=== PATIENT | male | born 1955 | race American Indian/Alaskan Native ===

== ENCOUNTER 2017-04-09 23:40 | Inpatient (IN) | payer BC ==
[2017-04-09 23:50] VITALS: BMI 26.8
--- NOTE | 2017-04-09 23:52 | C.PDOC ---
History Of Present Illness Pt complaining of chest discomfort, while at rest. 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 Pt 's also states that pt has some chest pain about 2 days ago, but did not seek medical attention. Dull aching chest discomfort. /10. Speaking in complete sentences. Time Seen by Provider: 04/09/17 23:52 Chief Complaint (Nursing): Chest Pain History Per: Patient, Family History/Exam Limitations: no limitations Onset/Duration Of Symptoms: Hrs Current Symptoms Are (Timing): Still Present Context: Other Severity: Moderate Pain Scale Rating Of: 4 Quality: Dull, Burning, Aching Associated Symptoms: denies: Nausea, Dyspnea Exacerbating Factors: None Alleviating Factors: None Recent travel outside of the [place]: No Additional History Per: Family Past Medical History Reviewed: Historical Data, Nursing Documentation, Vital Signs Vital Signs: Last Vital Signs Temp 98.6 F 04/10/17 00:23 Pulse 87 04/10/17 01:22 Resp 20 04/10/17 01:22 BP 158/99 H 04/10/17 01:22 Pulse Ox 99 04/10/17 01:22 - Medical History PMH: CAD, Diabetes, HTN Denies: Arthritis, CHF, COPD, HIV, Hypercholesterolemia, Hypothyroidism, Chronic Kidney Disease, Rheumatoid Arthritis Surgical History: Pacemaker Family History: States: No Known Family Hx - Social History Hx Tobacco Use: No Hx Alcohol Use: No Hx Substance Use: No - Immunization History Hx Tetanus Toxoid Vaccination: No Hx Influenza Vaccination: No Hx Pneumococcal Vaccination: No Review Of Systems Constitutional: Negative for: Fever, Chills Eyes: Negative for: Redness ENT: Negative for: Throat Pain Cardiovascular: Positive for: Chest Pain. Negative for: Palpitations Respiratory: Negative for: Shortness of Breath Gastrointestinal: Negative for: Nausea, Vomiting, Abdominal Pain Genitourinary: Negative for: Dysuria Musculoskeletal: Negative for: Back Pain Skin: Negative for: Rash, Lesions, Jaundice Neurological: Negative for: Weakness Psych: Negative for: Anxiety Physical Exam - Physical Exam Appears: Non-toxic Skin: Warm, Dry Head: Normacephalic Eye(s): bilateral: Normal Inspection Oral Mucosa: Moist Neck: Supple Chest: Symmetrical, Other (pacer left cw) Cardiovascular: Rhythm Regular Respiratory: No Rales, No Rhonchi, No Wheezing Gastrointestinal/Abdominal: Soft, No Tenderness, No Distention, No Rebound Back: No CVA Tenderness Extremity: Normal ROM Extremity: Bilateral: Atraumatic, Normal Color And Temperature Pulses: Left Dorsalis Pedis: Normal, Right Dorsalis Pedis: Normal Neurological/Psych: Oriented x3, Normal Speech, Normal Cognition Gait: Steady ED Course And Treatment - Laboratory Results Result Diagrams: 04/10/17 00:05 04/10/17 00:05 ECG: Interpreted By Me, Viewed By Me ECG Rhythm: Sinus Rhythm (96), Nonspecific Changes O2 Sat by Pulse Oximetry: 95 Pulse Ox Interpretation: Normal - Radiology CXR: Interpreted by Me, Viewed By Me Progress Note: cardiac work up, asa, Disposition Discussed With Dr.: Anne Carter Comment: accepted the pt on his service and took over the care at 1:33 AM Doctor Will See Patient In The: Hospital Counseled Patient/Family Regarding: Studies Performed, Diagnosis - Disposition Disposition: HOSPITALIZED Disposition Time: 23:52 Condition: FAIR - POA Present On Arrival: Poor Glycemic Control - Clinical Impression Clinical Impression: Chest pain, CHF (congestive heart failure), Hyperglycemia Decision To Admit - Pt Status Changed To: Hospital Disposition Of: Inpatient - Admit Certification Admit to Inpatient:: After my assessment, the patient will require hospitalization for at least two midnights. This is because of the severity of symptoms shown, intensity of services needed, and/or the medical risk in this patient being treated as an outpatient. - InPatient: Physician Admission Certification: I certify that this patient requires 2 or more midnights of care for the following reason:: After my assessment, the patient will require hospitalization for at least two midnights. This is because of the severity of symptoms shown, intensity of services needed, and/or the medical risk in this patient being treated as an outpatient. - . Bed Request Type: Telemetry Admitting Physician: Anne Carter Patient Diagnosis: Chest pain, CHF (congestive heart failure), Hyperglycemia
[2017-04-09] MEDS ORDERED: Nitroglycerin 2% Ointment Foilpak UD TOP STA (23:57)
[2017-04-09] MEDS ORDERED: Aspirin 325 mg EC Tablets PO STA (23:57)
[2017-04-10] MEDS ORDERED: Nitroglycerin 2% Ointment Foilpak UD TOP ONE (00:06)
[2017-04-10] MEDS ORDERED: Morphine 4 MG/ML VIAL ONE (00:06)
[2017-04-10 00:12] LABS: BASO # 0.1 K/uL (0.0-0.2); BASO % 1.7 % (0.0-2.0); EOS # 0.5 K/uL (0.0-0.7); EOS % 9.4 % (0.0-4.0); HEMOGLOBIN 13.6 g/dL (12.0-18.0); LYMPH % 34.1 % (20.0-40.0); MEAN CELL VOLUME 80.5 fL (80.0-94.0); MEAN CORPUSCULAR HEMOGLOBIN 25.2 pg (27.0-31.0); MEAN CORPUSCULAR HGB CONC 31.3 g/dL (33.0-37.0); MEAN PLATELET VOLUME 9.2 fL (7.2-11.7); MONO # 0.7 K/uL (0.0-0.8); MONO % 11.3 % (0.0-10.0); NEUT # 2.5 K/uL (1.8-7.0); NEUT % 43.5 % (50.0-75.0); NRBC % 0.1 % (0.0-2.0); RBC 5.39 Mil/uL (4.40-5.90); RED CELL DISTRIBUTION WIDTH 14.7 % (11.5-14.5); WHITE BLOOD COUNT 5.8 K/uL (4.8-10.8)
[2017-04-10 00:38] LABS: INR 1.1; PROTHROMBIN TIME 12.5 SECONDS (9.7-12.2)
[2017-04-10 00:45] LABS: ALBUMIN 3.5 g/dL (3.5-5.0)
[2017-04-10 00:47] LABS: GFR AFRICAN-AMERICAN 30; GFR NON-AFRICAN AMERICAN 25
[2017-04-10 00:48] LABS: ALB/GLOB RATIO 1.1 (1.0-2.1); ALT/SGPT 17 U/L (21-72); AST/SGOT 35 U/L (17-59); BLOOD UREA NITROGEN 26 mg/dL (9-20); CALCIUM 7.8 mg/dl (8.6-10.4)
[2017-04-10 01:01] LABS: B-TYPE NATRIURETIC PEPTIDE 1190 pg/mL (0-900)
[2017-04-10 01:14] LABS: SQUAMOUS EPITHIAL < 1 /hpf (0-5); URINE BILIRUBIN NEGATIVE (NEGATIVE); URINE CLARITY Clear (Clear); URINE COLOR Straw (YELLOW); URINE GLUCOSE (UA) 3+ mg/dL (Normal); URINE LEUKOCYTE ESTERASE NEG Leu/uL (Negative); URINE NITRATE NEGATIVE (NEGATIVE); URINE PROTEIN 2+ mg/dL (NEGATIVE); URINE UROBILINOGEN NORMAL mg/dL (0.2-1.0)
[2017-04-10 01:26] LABS: URINE BLOOD NEGATIVE (NEGATIVE)
[2017-04-10] MEDS ORDERED: (Novolin 70/30) NPH/Regular 70/30 Units/ml 10 ml vial SC STA (02:29)
[2017-04-10] MEDS ORDERED: (Novolin R) Insulin Human Regular 100 units/ml vial SC ONE (02:37)
[2017-04-10] MEDS ORDERED: [UNRECOGNIZED DRUG - OTHER] SC SCH (07:30)
[2017-04-10 08:10] LABS: CK-MB 1.8 ng/mL (0.0-3.38)
--- NOTE | 2017-04-10 08:40 | RAD ---
PROCEDURE: CHEST RADIOGRAPH, 1 VIEW HISTORY: Chest pain COMPARISON: 04/10/2017 FINDINGS: LUNGS: There is mild pulmonary venous congestion. There is bibasilar atelectasis. There are low lung volumes. PLEURA: No pneumothorax or pleural fluid seen. CARDIOVASCULAR: The heart is normal in size. There is prominent central vasculature. There is a left-sided dual lead transvenous permanent pacing device. OSSEOUS STRUCTURES: No significant abnormalities. VISUALIZED UPPER ABDOMEN: Normal. OTHER FINDINGS: None. IMPRESSION: Mild pulmonary venous congestion and bibasilar atelectasis.
[2017-04-10] MEDS: (Novolin R) Insulin Human Regular 100 units/ml vial SC SCH ×4 (09:16→22:05)
[2017-04-10] MEDS: Multivitamin With Minerals Tab PO SCH (09:18)
[2017-04-10] MEDS ORDERED: TRADJENTA 5 MG PO SCH (10:00)
--- NOTE | 2017-04-10 12:01 | CP.PCM.CON ---
History of Present Illness - History of Present Illness History of Present Illness: CC: CP / SOB HPI : Mr. Tran is a 61-year-old male from [facility] with past medical history significant for hypertension, diabetes mellitus ,hyperlipidemia ,congestive heart failure known ejection fraction of 30% who has been followed by a school childcare attendant out of [facility] Dr. Twan Das. According to the patient he had undergone ischemic evaluation by Dr. Degroot with a Persantine Myoview stress test about 2 weeks ago which showed nonspecific findings. He had an episode of chest pain last week which lasted for an hour and then subsequently resolved. Yesterday he had a recurrent episode of chest pain described as substernal pressure-like sensation radiating to the neck area for which he called 911 as was brought to the ED. According to patient's he had a cardiopulmonary arrest about 5 years ago. While he was in [place] and was intubated for 5 days. Patient does not recall that have information whether he had undergone any invasive evaluation for workup of his cardiomyopathy. According to the at baseline he is retired somewhat active can walk a few blocks. This is a second episode of his chest pain in the last 5 years. Patient has been compliant with his medications. Takes Coreg sustained release 40 mg daily candesartan fenofibric acid Lipitor and insulin. At baseline has NYHA functional class 1/2 dyspnea. 2 pillow orthopnea. EKG on initial presentation showed normal sinus rhythm left axis deviation with nonspecific lateral T-wave changes. He had undergone ICD placement and 2 years ago for cardiomyopathy. I had called and spoken with Dr. Travis Tilley for etiology of his presentation and his classic symptoms of indicted chest pain with severe exacerbation and CHF exacerbation. Dr. Ferguson agreed that he would need further invasive evaluation with possible cardiac catheterization for workup of his presentation. Review of Systems - Review of Systems All systems: reviewed and no additional remarkable complaints except - Constitutional Constitutional: As Per HPI - EENT Eyes: As Per HPI Nose/Mouth/Throat: As Per HPI - Cardiovascular Cardiovascular: Chest Pain, Chest Pain at Rest, Dyspnea, Dyspnea on Exertion - Respiratory Respiratory: As Per HPI - Gastrointestinal Gastrointestinal: As Per HPI - Musculoskeletal Musculoskeletal: As Per HPI - Integumentary Integumentary: As Per HPI - Neurological Neurological: As Per HPI - Endocrine Endocrine: As Per HPI Past Patient History - Infectious Disease Hx of Infectious Diseases: None - Past Medical History & Family History Past Medical History?: Yes - Past Social History Smoking Status: smoked x 25 years , quit smoking about 5 years ago Alcohol: None Drugs: Denies Home Situation {Lives}: With Family - CARDIAC Hx Cardiac Disorders: Yes Hx Congestive Heart Failure: Yes (Known ChF with EF of 30%) Hx Heart Attack: Yes (cardiac arrest 5 years ago ) Hx Hypercholesterolemia: Yes Hx Hypertension: Yes Hx Internal Defibrillator: Yes Hx Pacemaker: No - PULMONARY Hx Chronic Obstructive Pulmonary Disease (COPD): No - NEUROLOGICAL HX Cerebrovascular Accident: No - HEENT Hx HEENT Problems: No - RENAL Hx Chronic Kidney Disease: No - ENDOCRINE/METABOLIC Hx Hypothyroidism: No - HEMATOLOGICAL/ONCOLOGICAL Hx Human Immunodeficiency Virus (HIV): No - INTEGUMENTARY Hx Dermatological Problems: No - MUSCULOSKELETAL/RHEUMATOLOGICAL Hx Falls: No - GASTROINTESTINAL Hx Gastrointestinal Disorders: No - GENITOURINARY/GYNECOLOGICAL Hx Genitourinary Disorders: No - PSYCHIATRIC Hx Substance Use: No - SURGICAL HISTORY Other/Comment: pacemaker lt. chest wall. 2009 - ANESTHESIA Hx Anesthesia: Yes Hx Anesthesia Reactions: No Hx Malignant Hyperthermia: No Meds Allergies/Adverse Reactions: Allergies Allergy/AdvReac Type Severity Reaction Status Date / Time No Known Allergies Allergy Verified 04/09/17 23:50 - Medications Medications: Current Medications Acetaminophen (Tylenol 325mg Tab) 650 mg PO Q6 PRN PRN Reason: Headache Last Admin: 04/10/17 03:59 Dose: 650 mg Aspirin (Ecotrin) 81 mg PO DAILY [facility] Stop: 04/12/17 10:01 Last Admin: 04/10/17 09:17 Dose: 81 mg Carvedilol (Coreg) 12.5 mg PO BID [facility] Last Admin: 04/10/17 09:18 Dose: 12.5 mg Clopidogrel Bisulfate (Plavix) 75 mg PO DAILY [facility] Stop: 04/12/17 10:01 Last Admin: 04/10/17 09:17 Dose: 75 mg Fenofibrate (Tricor) 145 mg PO DAILY [facility] Last Admin: 04/10/17 10:50 Dose: 145 mg Heparin Sodium (Porcine) (Heparin) 5,000 units SC Q12 [facility] Last Admin: 04/10/17 10:51 Dose: 5,000 units Hydrochlorothiazide (Microzide) 12.5 mg PO DAILY [facility] Last Admin: 04/10/17 09:18 Dose: 12.5 mg Insulin Human Regular (Novolin R) 0 unit SC ACHS [facility] PRN Reason: Protocol Last Admin: 04/10/17 09:16 Dose: 3 unit Losartan Potassium (Cozaar) 100 mg PO DAILY [facility] Last Admin: 04/10/17 09:18 Dose: 100 mg Multivitamins/Minerals (Therapeutic-M Tab) 1 tab PO DAILY [facility] Last Admin: 04/10/17 09:18 Dose: 1 tab Rosuvastatin Calcium (Crestor) [address] [facility] Sitagliptin Phosphate (Januvia) 25 mg PO DAILY [facility] Last Admin: 04/10/17 10:52 Dose: Not Given Physical Exam - Constitutional Appears: Well - Head Exam Head Exam: ATRAUMATIC, NORMAL INSPECTION, NORMOCEPHALIC - Eye Exam Eye Exam: EOMI, Normal appearance, PERRL Pupil Exam: NORMAL ACCOMODATION, PERRL - ENT Exam ENT Exam: Mucous Membranes Moist, Normal Exam - Neck Exam Neck exam: Positive for: Normal Inspection - Respiratory Exam Respiratory Exam: Clear to Auscultation Bilateral, NORMAL BREATHING PATTERN - Cardiovascular Exam Cardiovascular Exam: REGULAR RHYTHM, RRR, +S1, +S2, Systolic Murmur - GI/Abdominal Exam GI & Abdominal Exam: Normal Bowel Sounds, Soft. absent: Tenderness - Rectal Exam Rectal Exam: Deferred - Extremities Exam Extremities exam: Positive for: normal inspection - Neurological Exam Neurological exam: Alert, CN II-XII Intact, Normal Gait, Oriented x3, Reflexes Normal - Psychiatric Exam Psychiatric exam: Normal Affect, Normal Mood - Skin Skin Exam: Dry, Intact, Normal Color, Warm Results - Vital Signs Recent Vital Signs: Last Vital Signs Temp 98.1 F 04/10/17 08:00 Pulse 82 04/10/17 09:16 Resp 20 04/10/17 08:00 BP 151/87 H 04/10/17 09:18 Pulse Ox 99 04/10/17 08:00 - Labs Result Diagrams: 04/10/17 00:05 04/10/17 00:05 Labs: Laboratory Results - last 24 hr 04/10/17 04/10/17 04/10/17 02:22 06:15 07:39 POC Glucose (mg/dL) 322 H 202 H Total Creatine Kinase 155 CK-MB (Mass) 1.80 Troponin I, Quant 0.0350 - EKG Data EKG Interpreted by: Myself EKG shows normal: Sinus rhythm, [place], ST-T waves - EKG Data EKG comments: lateral wall T-wave changes Assessment & Plan (1) Chest pain Assessment and Plan: acute onset severe chest pains at rest EKG - nonspecific TnI x 2 negative Typical anginal symptoms in patient with multiple risk factors ( htn, Dm, dyslipidemia) repeat cardiac enzymes check echocardiogram discussed his recent stress findings with his school childcare attendant in [facility] who agrees for further invasive w/u at keep pt on asa, bb, statins therapeutic lovenox for now Status: Acute (2) CHF (congestive heart failure) Assessment and Plan: acute on chronic severe CHF exacerbation systolic EF 30% etiology ? IHD continue with BB and ARB Status: Acute (3) Renal failure Assessment and Plan: Known CKD - III , baseline Cr is 2.1 contiue to monitor clinically Status: Acute (4) Dyslipidemia Assessment and Plan: check FLP cont with fenofibric acid and statins Status: Acute (5) HTN (hypertension) Assessment and Plan: BP stable cont with coreg and candesartan home meds Status: Acute
--- NOTE | 2017-04-10 12:12 | CARD ---
APPROVED REPORT EKG Measurement Heart [id number] [id number] <Conclusion> Normal sinus rhythm Left axis deviation Abnormal ECG
[2017-04-10 13:49] LABS: BASO # 0.1 K/uL (0.0-0.2); BASO % 1.2 % (0.0-2.0); EOS # 0.4 K/uL (0.0-0.7); EOS % 5.1 % (0.0-4.0); HEMOGLOBIN 13.2 g/dL (12.0-18.0); LYMPH # 1.8 K/uL (1.0-4.3); LYMPH % 21.9 % (20.0-40.0); MEAN CELL VOLUME 80.4 fL (80.0-94.0); MEAN CORPUSCULAR HEMOGLOBIN 25.9 pg (27.0-31.0); MEAN CORPUSCULAR HGB CONC 32.2 g/dL (33.0-37.0); MEAN PLATELET VOLUME 9.1 fL (7.2-11.7); MONO % 11.5 % (0.0-10.0); NEUT % 60.3 % (50.0-75.0); RBC 5.09 Mil/uL (4.40-5.90); RED CELL DISTRIBUTION WIDTH 14.9 % (11.5-14.5); WHITE BLOOD COUNT 8.3 K/uL (4.8-10.8)
[2017-04-10 13:56] LABS: ALBUMIN 3.2 g/dL (3.5-5.0)
[2017-04-10 13:59] LABS: ALB/GLOB RATIO 1.1 (1.0-2.1)
[2017-04-10 14:08] LABS: CK-MB 1.81 ng/mL (0.0-3.38)
--- NOTE | 2017-04-10 15:00 | US ---
PROCEDURE: Ultrasound of the Kidneys HISTORY: CRF COMPARISON: None available. TECHNIQUE: Grayscale imaging was performed. FINDINGS: RIGHT KIDNEY: Measures: 10.7 cm. Normal in size, contour diffuse increased echogenicity. No stone, solid mass lesion or hydronephrosis visualized. LEFT KIDNEY: Measures: 10.2 cm. Normal in size, contour with diffuse increased echogenicity. No stone, solid mass lesion or hydronephrosis visualized. OTHER FINDINGS: None. IMPRESSION: Medical renal disease.
--- NOTE | 2017-04-10 18:08 | CP.PCM.HP ---
Past Patient History - Infectious Disease Hx of Infectious Diseases: None - Past Medical History & Family History Past Medical History?: Yes - Past Social History Smoking Status: smoked x 25 years , quit smoking about 5 years ago Alcohol: None Drugs: Denies Home Situation {Lives}: With Family - CARDIAC Hx Cardiac Disorders: Yes Hx Congestive Heart Failure: Yes (Known ChF with EF of 30%) Hx Heart Attack: Yes (cardiac arrest 5 years ago ) Hx Hypercholesterolemia: Yes Hx Hypertension: Yes Hx Internal Defibrillator: Yes Hx Pacemaker: No - PULMONARY Hx Chronic Obstructive Pulmonary Disease (COPD): No - NEUROLOGICAL HX Cerebrovascular Accident: No - HEENT Hx HEENT Problems: No - RENAL Hx Chronic Kidney Disease: No - ENDOCRINE/METABOLIC Hx Hypothyroidism: No - HEMATOLOGICAL/ONCOLOGICAL Hx Human Immunodeficiency Virus (HIV): No - INTEGUMENTARY Hx Dermatological Problems: No - MUSCULOSKELETAL/RHEUMATOLOGICAL Hx Falls: No - GASTROINTESTINAL Hx Gastrointestinal Disorders: No - GENITOURINARY/GYNECOLOGICAL Hx Genitourinary Disorders: No - PSYCHIATRIC Hx Substance Use: No - SURGICAL HISTORY Other/Comment: pacemaker lt. chest wall. 2009 - ANESTHESIA Hx Anesthesia: Yes Hx Anesthesia Reactions: No Hx Malignant Hyperthermia: No Meds Allergies/Adverse Reactions: Allergies Allergy/AdvReac Type Severity Reaction Status Date / Time No Known Allergies Allergy Verified 04/09/17 23:50 Physical Exam - Constitutional Appears: Well - Head Exam Head Exam: ATRAUMATIC, NORMAL INSPECTION, NORMOCEPHALIC - Eye Exam Eye Exam: EOMI, Normal appearance, PERRL Pupil Exam: NORMAL ACCOMODATION, PERRL - ENT Exam ENT Exam: Mucous Membranes Moist, Normal Exam - Neck Exam Neck exam: Positive for: Normal Inspection - Respiratory Exam Respiratory Exam: Decreased Breath Sounds - Cardiovascular Exam Cardiovascular Exam: REGULAR RHYTHM, +S1, +S2 - GI/Abdominal Exam GI & Abdominal Exam: Diminished Bowel Sounds, Soft - Rectal Exam Rectal Exam: Deferred Results - Vital Signs Recent Vital Signs: Last Vital Signs Temp 98.1 F 04/10/17 16:13 Pulse 80 04/10/17 16:13 Resp 20 04/10/17 16:13 BP 138/75 04/10/17 17:50 Pulse Ox 97 04/10/17 16:13 - Labs Result Diagrams: 04/10/17 13:41 04/10/17 13:41 Labs: Laboratory Results - last 24 hr 04/10/17 04/10/1704/10/17 02:22 06:15 07:39 WBC RBC Hgb Hct MCV MCH MCHC RDW Plt Count MPV Neut % (Auto) Lymph % (Auto) [place] % (Auto) Eos % (Auto) Baso % (Auto) Neut # Lymph # [place] # Eos # Baso # Sodium Potassium Chloride Carbon Dioxide Anion Gap BUN Creatinine Est GFR ( Amer) Est GFR (Non-Af Amer) POC Glucose (mg/dL) 322 H 202 H Random Glucose Calcium Total Bilirubin AST ALT Alkaline Phosphatase Total Creatine Kinase 155 CK-MB (Mass) 1.80 Troponin I, Quant 0.0350 Total Protein Albumin Globulin Albumin/Globulin Ratio 04/10/17 04/10/17 04/10/17 11:48 13:41 13:41 WBC 8.3 RBC 5.09 Hgb 13.2 Hct 41.0 MCV 80.4 MCH 25.9 L MCHC 32.2 L RDW 14.9 H Plt Count 239 MPV 9.1 Neut % (Auto) 60.3 Lymph % (Auto) 21.9 [place] % (Auto) 11.5 H Eos % (Auto) 5.1 H Baso % (Auto) 1.2 Neut # 5.0 Lymph # 1.8 [place] # 1.0 H Eos # 0.4 Baso # 0.1 Sodium 139 Potassium 3.9 Chloride 101 Carbon Dioxide 25 Anion Gap 18 BUN 29 H Creatinine 2.8 H Est GFR ( Amer) 28 Est GFR (Non-Af Amer) 23 POC Glucose (mg/dL) 173 H Random Glucose 195 H Calcium 8.0 L Total Bilirubin 0.5 AST 23 ALT 22 Alkaline Phosphatase 33 L Total Creatine Kinase CK-MB (Mass) Troponin I, Quant Total Protein 6.2 L Albumin 3.2 L Globulin 3.0 Albumin/Globulin Ratio 1.1 04/10/17 04/10/17 13:42 16:45 WBC RBC Hgb Hct MCV MCH MCHC RDW Plt Count MPV Neut % (Auto) Lymph % (Auto) [place] % (Auto) Eos % (Auto) Baso % (Auto) Neut # Lymph # [place] # Eos # Baso # Sodium Potassium Chloride Carbon Dioxide Anion Gap BUN Creatinine Est GFR ( Amer) Est GFR (Non-Af Amer) POC Glucose (mg/dL) 247 H Random Glucose Calcium Total Bilirubin AST ALT Alkaline Phosphatase Total Creatine Kinase 146 CK-MB (Mass) 1.81 Troponin I, Quant 0.0160 Total Protein Albumin Globulin Albumin/Globulin Ratio
[2017-04-11] MEDS: (Novolin R) Insulin Human Regular 100 units/ml vial SC SCH ×4 (08:03→21:34)
[2017-04-11 08:33] LABS: BASO # 0.1 K/uL (0.0-0.2); BASO % 1.2 % (0.0-2.0); EOS # 0.5 K/uL (0.0-0.7); EOS % 5.8 % (0.0-4.0); LYMPH % 25.3 % (20.0-40.0); MEAN CELL VOLUME 79.9 fL (80.0-94.0); MEAN CORPUSCULAR HEMOGLOBIN 26.3 pg (27.0-31.0); MEAN CORPUSCULAR HGB CONC 32.9 g/dL (33.0-37.0); MEAN PLATELET VOLUME 9.4 fL (7.2-11.7); MONO # 1.1 K/uL (0.0-0.8); MONO % 14.3 % (0.0-10.0); NEUT # 4.2 K/uL (1.8-7.0); NEUT % 53.4 % (50.0-75.0); NRBC % 0.1 % (0.0-2.0); RBC 5.35 Mil/uL (4.40-5.90); RED CELL DISTRIBUTION WIDTH 14.8 % (11.5-14.5); WHITE BLOOD COUNT 7.8 K/uL (4.8-10.8)
[2017-04-11 08:42] LABS: ALBUMIN 3.4 g/dL (3.5-5.0)
[2017-04-11 08:45] LABS: ALB/GLOB RATIO 1.1 (1.0-2.1)
[2017-04-11 08:46] LABS: CALCIUM 8.2 mg/dl (8.6-10.4)
[2017-04-11] MEDS: Multivitamin With Minerals Tab PO SCH (09:55)
[2017-04-11] MEDS ORDERED: Enoxaparin 40 mg Syringe SC SCH (10:00)
--- NOTE | 2017-04-11 15:16 | CARD ---
APPROVED REPORT EXAM: Two-dimensional and M-mode echocardiogram with Doppler and color Doppler. Other Information Quality : GoodRhythm : NSR INDICATION Chest Pain Congestive Heart Failure HYPERGLYCEMIA RISK FACTORS Hypertension Diabetes M-Mode DIMENSIONS RVDd1.39 (2.1-3.2cm)Left Atrium (MM)4.87 (2.5-4.0cm) IVSd1.08 (0.7-1.1cm)Aortic Root3.13 (2.2-3.7cm) LVDd4.58 (4.0-5.6cm)Aortic Cusp Exc.1.84 (1.5-2.0cm) PWd1.98 (0.7-1.1cm)FS (%) 29 % LVDs3.26 (2.0-3.8cm)LVEF (%)55 (>50%) Aortic Valve AoV Peak Ouoenkgt432.5cm/Tao Peak GR.5mmHg Mitral Valve MV E Blglpvbc05.9cm/sMV A Ggwsccup30.9cm/sE/A ratio0.9 TDI E/Lateral E'0.0E/Medial E'0.0 Tricuspid Valve TR Peak [id number]/sTR Peak Gr.[id number] LEFT VENTRICLE The left ventricle is normal size. There is normal left ventricular wall thickness. The left ventricular function is normal. The left ventricular ejection fraction is within the normal range. There is normal LV segmental wall motion. Transmitral Doppler flow pattern is abnormal. RIGHT VENTRICLE The right ventricle is normal size. ATRIA The left atrium is mildly dilated. The right atrium size is normal. AORTIC VALVE There is trace to mild aortic regurgitation. MITRAL VALVE Mitral regurgitation is trace to mild. TRICUSPID VALVE There is mild tricuspid regurgitation. <Conclusion> Normal LV systolic function. Diastolic dysfunction. Dilated LA. Trace to mild MR. Trace to mild AR. Mild TR.
--- NOTE | 2017-04-11 20:29 | CP.PCM.PN ---
Subjective - Date & Time of Evaluation Date of Evaluation: 04/12/17 Time of Evaluation: 13:00 - Subjective Subjective: clinically same Objective - Vital Signs/Intake and Output Vital Signs (last 24 hours): Temp Pulse Resp BP Pulse Ox 98.1 F 87 20 150/84 99 04/11/17 16:23 04/11/17 16:23 04/11/17 16:23 04/11/17 17:20 04/11/17 16:23 Intake and Output: 04/11/17 04/12/17 18:59 06:59 Intake Total 240 Balance 240 - Medications Medications: Current Medications Acetaminophen (Tylenol 325mg Tab) 650 mg PO Q6 PRN PRN Reason: Headache Last Admin: 04/10/17 03:59 Dose: 650 mg Aspirin (Ecotrin) 81 mg PO DAILY [facility] Stop: 04/12/17 10:01 Last Admin: 04/11/17 09:55 Dose: 81 mg Carvedilol (Coreg) 12.5 mg PO BID [facility] Last Admin: 04/11/17 17:20 Dose: 12.5 mg Clopidogrel Bisulfate (Plavix) 75 mg PO DAILY [facility] Stop: 04/12/17 10:01 Last Admin: 04/11/17 09:55 Dose: 75 mg Fenofibrate (Tricor) 145 mg PO DAILY [facility] Last Admin: 04/11/17 09:55 Dose: 145 mg Heparin Sodium (Porcine) (Heparin) 5,000 units SC Q12 [facility] Last Admin: 04/11/17 09:56 Dose: 5,000 units Hydrochlorothiazide (Microzide) 12.5 mg PO DAILY [facility] Last Admin: 04/11/17 09:55 Dose: 12.5 mg Insulin Human Regular (Novolin R) 0 unit SC ACHS [facility] PRN Reason: Protocol Last Admin: 04/11/17 17:05 Dose: 6 unit Losartan Potassium (Cozaar) 100 mg PO DAILY [facility] Last Admin: 04/11/17 09:55 Dose: 100 mg Multivitamins/Minerals (Therapeutic-M Tab) 1 tab PO DAILY [facility] Last Admin: 04/11/17 09:55 Dose: 1 tab Pneumococcal Polyvalent Vaccine (Pneumovax 23 Vaccine) 0.5 ml IM .ONCE ONE Stop: 04/12/17 10:01 Rosuvastatin Calcium (Crestor) 5 mg PO HS [facility] Last Admin: 04/10/17 22:07 Dose: 5 mg Sitagliptin Phosphate (Januvia) 25 mg PO DAILY [facility] Last Admin: 04/11/17 09:56 Dose: 25 mg - Labs Labs: 04/11/17 08:23 04/11/17 08:23 PT 12.5 SECONDS (9.7-12.2) H 04/10/17 00:05 INR 1.1 04/10/17 00:05 APTT 33 SECONDS (21-34) 04/10/17 00:05 - Constitutional Appears: Well - Head Exam Head Exam: ATRAUMATIC, NORMAL INSPECTION, NORMOCEPHALIC - Eye Exam Eye Exam: EOMI, Normal appearance, PERRL Pupil Exam: NORMAL ACCOMODATION, PERRL - ENT Exam ENT Exam: Mucous Membranes Moist, Normal Exam - Neck Exam Neck Exam: Full ROM, Normal Inspection. absent: Lymphadenopathy - Respiratory Exam Respiratory Exam: Decreased Breath Sounds - Cardiovascular Exam Cardiovascular Exam: REGULAR RHYTHM, +S1, +S2 - GI/Abdominal Exam GI & Abdominal Exam: Soft, Diminished Bowel Sounds - Rectal Exam Rectal Exam: Deferred
[2017-04-12] MEDS: (Novolin R) Insulin Human Regular 100 units/ml vial SC SCH ×4 (07:47→23:00)
[2017-04-12] MEDS: Multivitamin With Minerals Tab PO SCH (09:34)
[2017-04-12] MEDS ORDERED: Pneumococcal 23-Valent Vaccine IM ONE (10:00)
[2017-04-12] MEDS: Sodium Chloride 0.9% 1,000 ML IV SCH ×2 (11:05→21:45)
--- NOTE | 2017-04-12 16:12 | CP.PCM.PN ---
Subjective - Date & Time of Evaluation Date of Evaluation: 04/12/17 Time of Evaluation: 16:00 - Subjective Subjective: feeling fine denies any complaints cr 2.9 on IVF hydration Objective - Vital Signs/Intake and Output Vital Signs (last 24 hours): Temp Pulse Resp BP Pulse Ox 98.8 F 87 18 156/98 H 100 04/12/17 07:30 04/12/17 13:30 04/12/17 07:30 04/12/17 13:30 04/12/17 07:30 Intake and Output: 04/12/17 04/12/17 06:59 18:59 Intake Total 850 Balance 850 - Medications Medications: Current Medications Acetaminophen (Tylenol 325mg Tab) 650 mg PO Q6 PRN PRN Reason: Headache Last Admin: 04/10/17 03:59 Dose: 650 mg Carvedilol (Coreg) 12.5 mg PO BID [facility] Last Admin: 04/12/17 09:45 Dose: Not Given Fenofibrate (Tricor) 145 mg PO DAILY [facility] Last Admin: 04/12/17 09:36 Dose: 145 mg Heparin Sodium (Porcine) (Heparin) 5,000 units SC Q12 [facility] Last Admin: 04/12/17 09:50 Dose: 5,000 units Hydrochlorothiazide (Microzide) 12.5 mg PO DAILY [facility] Last Admin: 04/12/17 09:34 Dose: 12.5 mg Sodium Chloride (Sodium Chloride 0.9%) 1,000 mls @ 100 mls/hr IV .Q10H [facility] Last Admin: 04/12/17 11:05 Dose: 100 mls/hr Insulin Human Regular (Novolin R) 0 unit SC ACHS [facility] PRN Reason: Protocol Last Admin: 04/12/17 12:42 Dose: 6 unit Losartan Potassium (Cozaar) 100 mg PO DAILY [facility] Last Admin: 04/12/17 09:33 Dose: 100 mg Multivitamins/Minerals (Therapeutic-M Tab) 1 tab PO DAILY [facility] Last Admin: 04/12/17 09:34 Dose: 1 tab Rosuvastatin Calcium (Crestor) 5 mg PO HS [facility] Last Admin: 04/11/17 21:08 Dose: 5 mg Sitagliptin Phosphate (Januvia) 25 mg PO DAILY [facility] Last Admin: 04/12/17 09:33 Dose: 25 mg - Labs Labs: 04/11/17 08:23 04/11/17 08:23 PT 12.5 SECONDS (9.7-12.2) H 04/10/17 00:05 INR 1.1 04/10/17 00:05 APTT 33 SECONDS (21-34) 04/10/17 00:05 - Constitutional Appears: Well - Head Exam Head Exam: ATRAUMATIC, NORMAL INSPECTION, NORMOCEPHALIC - Eye Exam Eye Exam: EOMI, Normal appearance, PERRL Pupil Exam: NORMAL ACCOMODATION, PERRL - ENT Exam ENT Exam: Mucous Membranes Moist, Normal Exam - Neck Exam Neck Exam: Full ROM, Normal Inspection. absent: Lymphadenopathy - Cardiovascular Exam Cardiovascular Exam: REGULAR RHYTHM, +S1, +S2. absent: Murmur - GI/Abdominal Exam GI & Abdominal Exam: Soft, Normal Bowel Sounds. absent: Tenderness - Rectal Exam Rectal Exam: Deferred - Extremities Exam Extremities Exam: Full ROM, Normal Capillary Refill, Normal Inspection. absent : Joint Swelling, Pedal Edema - Back Exam Back Exam: NORMAL INSPECTION - Neurological Exam Neurological Exam: Alert, Awake, CN II-XII Intact, Normal Gait, Oriented x3 - Psychiatric Exam Psychiatric exam: Normal Affect, Normal Mood - Skin Skin Exam: Dry, Intact, Normal Color, Warm Assessment and Plan (1) Chest pain Assessment & Plan: etiology unclear cannot exclude underlying CAD ACS ruled out will need angiogram but wait until renal function stable cont with asa, bb, statins, nitrates Status: Acute (2) CHF (congestive heart failure) Assessment & Plan: cont with coreg and losartan echo reviewed normal LVEF monitor s/sx daily weights Status: Acute (3) Renal failure Assessment & Plan: cr 2.9 IVF hydration Status: Acute (4) Dyslipidemia Assessment & Plan: cont with fenofibrates and statins Status: Acute (5) HTN (hypertension) Status: Acute
[2017-04-12 16:44] VITALS: RESP 20
--- NOTE | 2017-04-12 17:50 | CP.PCM.PN ---
Subjective - Date & Time of Evaluation Date of Evaluation: 04/12/17 Time of Evaluation: 12:40 - Subjective Subjective: clinically same Objective - Vital Signs/Intake and Output Vital Signs (last 24 hours): Temp Pulse Resp BP Pulse Ox 98 F 86 20 163/90 H 99 04/12/17 16:00 04/12/17 16:00 04/12/17 16:00 04/12/17 17:35 04/12/17 16:00 Intake and Output: 04/12/17 04/12/17 06:59 18:59 Intake Total 850 Balance 850 - Medications Medications: Current Medications Acetaminophen (Tylenol 325mg Tab) 650 mg PO Q6 PRN PRN Reason: Headache Last Admin: 04/10/17 03:59 Dose: 650 mg Carvedilol (Coreg) 12.5 mg PO BID [facility] Last Admin: 04/12/17 17:35 Dose: 12.5 mg Fenofibrate (Tricor) 145 mg PO DAILY [facility] Last Admin: 04/12/17 09:36 Dose: 145 mg Heparin Sodium (Porcine) (Heparin) 5,000 units SC Q12 [facility] Last Admin: 04/12/17 09:50 Dose: 5,000 units Hydrochlorothiazide (Microzide) 12.5 mg PO DAILY [facility] Last Admin: 04/12/17 09:34 Dose: 12.5 mg Sodium Chloride (Sodium Chloride 0.9%) 1,000 mls @ 100 mls/hr IV .Q10H [facility] Last Admin: 04/12/17 11:05 Dose: 100 mls/hr Insulin Human Regular (Novolin R) 0 unit SC ACHS [facility] PRN Reason: Protocol Last Admin: 04/12/17 17:35 Dose: 3 unit Losartan Potassium (Cozaar) 100 mg PO DAILY [facility] Last Admin: 04/12/17 09:33 Dose: 100 mg Multivitamins/Minerals (Therapeutic-M Tab) 1 tab PO DAILY [facility] Last Admin: 04/12/17 09:34 Dose: 1 tab Rosuvastatin Calcium (Crestor) 5 mg PO HS [facility] Last Admin: 04/11/17 21:08 Dose: 5 mg Sitagliptin Phosphate (Januvia) 25 mg PO DAILY [facility] Last Admin: 04/12/17 09:33 Dose: 25 mg - Labs Labs: 04/11/17 08:23 04/11/17 08:23 PT 12.5 SECONDS (9.7-12.2) H 04/10/17 00:05 INR 1.1 04/10/17 00:05 APTT 33 SECONDS (21-34) 04/10/17 00:05 - Constitutional Appears: Well - Head Exam Head Exam: ATRAUMATIC, NORMAL INSPECTION, NORMOCEPHALIC - Eye Exam Eye Exam: EOMI, Normal appearance, PERRL Pupil Exam: NORMAL ACCOMODATION, PERRL - ENT Exam ENT Exam: Mucous Membranes Moist, Normal Exam - Neck Exam Neck Exam: Full ROM, Normal Inspection. absent: Lymphadenopathy - Respiratory Exam Respiratory Exam: Decreased Breath Sounds - Cardiovascular Exam Cardiovascular Exam: REGULAR RHYTHM, +S1, +S2 - GI/Abdominal Exam GI & Abdominal Exam: Soft, Diminished Bowel Sounds - Rectal Exam Rectal Exam: Deferred
[2017-04-13] MEDS: Sodium Chloride 0.9% 1,000 ML IV SCH ×2 (07:37→08:34)
[2017-04-13 08:14] VITALS: O2SAT 97
[2017-04-13] MEDS: (Novolin R) Insulin Human Regular 100 units/ml vial SC SCH ×3 (08:35→18:07)
[2017-04-13] MEDS: Multivitamin With Minerals Tab PO SCH (09:28)
--- NOTE | 2017-04-13 14:08 | CP.PCM.PN ---
Subjective - Date & Time of Evaluation Date of Evaluation: 04/13/17 Time of Evaluation: 12:40 - Subjective Subjective: CLINICALLY SAME Objective - Vital Signs/Intake and Output Vital Signs (last 24 hours): Temp Pulse Resp BP Pulse Ox 98.4 F 89 20 163/87 H 97 04/13/17 07:00 04/13/17 07:00 04/13/17 07:00 04/13/17 09:29 04/13/17 07:00 Intake and Output: 04/13/17 04/13/17 06:59 18:59 Intake Total 2019 Balance 2019 - Medications Medications: Current Medications Acetaminophen (Tylenol 325mg Tab) 650 mg PO Q6 PRN PRN Reason: Headache Last Admin: 04/10/17 03:59 Dose: 650 mg Carvedilol (Coreg) 12.5 mg PO BID [facility] Last Admin: 04/13/17 09:29 Dose: 12.5 mg Fenofibrate (Tricor) 145 mg PO DAILY [facility] Last Admin: 04/13/17 09:28 Dose: 145 mg Heparin Sodium (Porcine) (Heparin) 5,000 units SC Q12 [facility] Last Admin: 04/13/17 09:32 Dose: 5,000 units Hydrochlorothiazide (Microzide) 12.5 mg PO DAILY [facility] Last Admin: 04/13/17 09:28 Dose: 12.5 mg Sodium Chloride (Sodium Chloride 0.9%) 1,000 mls @ 100 mls/hr IV .Q10H [facility] Last Admin: 04/13/17 08:34 Dose: 100 mls/hr Insulin Human Regular (Novolin R) 0 unit SC ACHS [facility] PRN Reason: Protocol Last Admin: 04/13/17 12:46 Dose: 4 unit Losartan Potassium (Cozaar) 100 mg PO DAILY [facility] Last Admin: 04/13/17 09:29 Dose: 100 mg Multivitamins/Minerals (Therapeutic-M Tab) 1 tab PO DAILY [facility] Last Admin: 04/13/17 09:28 Dose: 1 tab Rosuvastatin Calcium (Crestor) 5 mg PO HS [facility] Last Admin: 04/12/17 21:51 Dose: 5 mg Sitagliptin Phosphate (Januvia) 25 mg PO DAILY [facility] Last Admin: 04/13/17 09:28 Dose: 25 mg - Labs Labs: 04/11/17 08:23 04/11/17 08:23 PT 12.5 SECONDS (9.7-12.2) H 04/10/17 00:05 INR 1.1 04/10/17 00:05 APTT 33 SECONDS (21-34) 04/10/17 00:05 - Constitutional Appears: Well - Head Exam Head Exam: ATRAUMATIC, NORMAL INSPECTION, NORMOCEPHALIC - Eye Exam Eye Exam: EOMI, Normal appearance, PERRL Pupil Exam: NORMAL ACCOMODATION, PERRL - ENT Exam ENT Exam: Mucous Membranes Moist, Normal Exam - Neck Exam Neck Exam: Full ROM, Normal Inspection. absent: Lymphadenopathy - Respiratory Exam Respiratory Exam: Decreased Breath Sounds - Cardiovascular Exam Cardiovascular Exam: REGULAR RHYTHM, +S1, +S2 - GI/Abdominal Exam GI & Abdominal Exam: Soft, Diminished Bowel Sounds - Rectal Exam Rectal Exam: Deferred
[2017-04-13 14:49] LABS: BASO # 0.1 K/uL (0.0-0.2); BASO % 1.3 % (0.0-2.0); EOS # 0.5 K/uL (0.0-0.7); EOS % 7.9 % (0.0-4.0); HEMOGLOBIN 13.7 g/dL (12.0-18.0); LYMPH # 1.8 K/uL (1.0-4.3); LYMPH % 31.8 % (20.0-40.0); MEAN CELL VOLUME 79.9 fL (80.0-94.0); MEAN CORPUSCULAR HEMOGLOBIN 25.6 pg (27.0-31.0); MEAN CORPUSCULAR HGB CONC 32.1 g/dL (33.0-37.0); MEAN PLATELET VOLUME 9.8 fL (7.2-11.7); MONO # 0.9 K/uL (0.0-0.8); MONO % 15.1 % (0.0-10.0); NEUT # 2.5 K/uL (1.8-7.0); NEUT % 43.9 % (50.0-75.0); NRBC % 0.1 % (0.0-2.0); RBC 5.34 Mil/uL (4.40-5.90); RED CELL DISTRIBUTION WIDTH 14.7 % (11.5-14.5); WHITE BLOOD COUNT 5.8 K/uL (4.8-10.8)
[2017-04-13 15:00] LABS: CALCIUM 8.2 mg/dl (8.6-10.4)
[2017-04-13 16:36] VITALS: TEMP 97.6
[2017-04-13 18:07] VITALS: BP 154/96
--- NOTE | 2017-04-13 18:12 | PCM.HF ---
Heart Failure Core Measure - Heart Failure Ejection Fraction: 40 % or Greater (EF 55%) KIARA Inhibitor Prescribed: No Contraindication/Reason for not providing: ESRD Beta-Castillo Prescribed: Carvedilol Angiotensin II Receptor Castillo Prescribed: Yes AnticoagulationTherapy for Atrial Fibrillation/Atrialflutter: No Contraindication/Reason for not providing: no afib Aldosterone Antagonist Prescribed: No Contraindication/Reason for not providing: CKD Hydralazine Nitrate Prescribed: No Contraindication/Reason for not providing: EF >40% Implantable Cardioverter Defibrillator Therapy: Yes Cardiac Resynchronization Therapy Prescribed: No Contraindication/Reason for not providing: Not indicated - Follow up Will be discharged to: Home Follow Up Date (must be within 7 days from discharge): 04/22/17 Follow Up Time: 09:00
--- NOTE | 2017-04-13 18:15 | CP.PCM.PN ---
Subjective - Date & Time of Evaluation Date of Evaluation: 04/13/17 Time of Evaluation: 11:00 - Subjective Subjective: Alert, awake, no sob or chest pains. Objective - Vital Signs/Intake and Output Vital Signs (last 24 hours): Temp Pulse Resp BP Pulse Ox 97.6 F 93 H 20 154/96 H 97 04/13/17 15:00 04/13/17 15:00 04/13/17 15:00 04/13/17 18:06 04/13/17 15:00 Intake and Output: 04/13/17 04/13/17 06:59 18:59 Intake Total 2019 1649 Balance 20190 - Medications Medications: Current Medications Acetaminophen (Tylenol 325mg Tab) 650 mg PO Q6 PRN PRN Reason: Headache Last Admin: 04/10/17 03:59 Dose: 650 mg Carvedilol (Coreg) 12.5 mg PO BID [facility] Last Admin: 04/13/17 18:06 Dose: 12.5 mg Fenofibrate (Tricor) 145 mg PO DAILY [facility] Last Admin: 04/13/17 09:28 Dose: 145 mg Heparin Sodium (Porcine) (Heparin) 5,000 units SC Q12 [facility] Last Admin: 04/13/17 09:32 Dose: 5,000 units Hydrochlorothiazide (Microzide) 12.5 mg PO DAILY [facility] Last Admin: 04/13/17 09:28 Dose: 12.5 mg Sodium Chloride (Sodium Chloride 0.9%) 1,000 mls @ 100 mls/hr IV .Q10H [facility] Last Admin: 04/13/17 08:34 Dose: 100 mls/hr Insulin Human Regular (Novolin R) 0 unit SC ACHS [facility] PRN Reason: Protocol Last Admin: 04/13/17 18:07 Dose: 8 unit Losartan Potassium (Cozaar) 100 mg PO DAILY [facility] Last Admin: 04/13/17 09:29 Dose: 100 mg Multivitamins/Minerals (Therapeutic-M Tab) 1 tab PO DAILY [facility] Last Admin: 04/13/17 09:28 Dose: 1 tab Rosuvastatin Calcium (Crestor) 5 mg PO HS [facility] Last Admin: 04/12/17 21:51 Dose: 5 mg Sitagliptin Phosphate (Januvia) 25 mg PO DAILY [facility] Last Admin: 04/13/17 09:28 Dose: 25 mg - Labs Labs: 04/13/17 14:39 04/13/17 14:39 PT 12.5 SECONDS (9.7-12.2) H 04/10/17 00:05 INR 1.1 04/10/17 00:05 APTT 33 SECONDS (21-34) 04/10/17 00:05 Assessment and Plan - Assessment and Plan (Free Text) Assessment: Patient is seen and examined. Denies sob or chest pains, d/w DR Ortiz Carter, discharge plan for home today. Advised to follow up with cardiologyst for possible angiogram when more stable.
[2017-04-13 19:02] VITALS: PULSE 85
--- NOTE | 2017-04-14 00:23 | CP.PCM.PN ---
Subjective - Date & Time of Evaluation Date of Evaluation: 04/13/17 Time of Evaluation: 10:00 - Subjective Subjective: feeling fine wants to go home if labs stable Objective - Vital Signs/Intake and Output Vital Signs (last 24 hours): Temp Pulse Resp BP Pulse Ox 97.6 F 85 20 154/96 H 97 04/13/17 15:00 04/13/17 16:00 04/13/17 15:00 04/13/17 18:06 04/13/17 15:00 Intake and Output: 04/13/17 04/14/17 18:59 06:59 Intake Total 1650 Balance 1650 - Labs Labs: 04/13/17 14:39 04/13/17 14:39 PT 12.5 SECONDS (9.7-12.2) H 04/10/17 00:05 INR 1.1 04/10/17 00:05 APTT 33 SECONDS (21-34) 04/10/17 00:05 - Constitutional Appears: Well - Head Exam Head Exam: ATRAUMATIC, NORMAL INSPECTION, NORMOCEPHALIC - Eye Exam Eye Exam: EOMI, Normal appearance, PERRL Pupil Exam: NORMAL ACCOMODATION, PERRL - ENT Exam ENT Exam: Mucous Membranes Moist, Normal Exam - Neck Exam Neck Exam: Full ROM, Normal Inspection. absent: Lymphadenopathy - Respiratory Exam Respiratory Exam: Clear to Ausculation Bilateral, NORMAL BREATHING PATTERN - Cardiovascular Exam Cardiovascular Exam: REGULAR RHYTHM, +S1, +S2. absent: Murmur - GI/Abdominal Exam GI & Abdominal Exam: Soft, Normal Bowel Sounds. absent: Tenderness - Extremities Exam Extremities Exam: Full ROM, Normal Capillary Refill, Normal Inspection. absent : Joint Swelling, Pedal Edema - Back Exam Back Exam: NORMAL INSPECTION - Neurological Exam Neurological Exam: Alert, Awake, CN II-XII Intact, Normal Gait, Oriented x3 - Psychiatric Exam Psychiatric exam: Normal Affect, Normal Mood - Skin Skin Exam: Dry, Intact, Normal Color, Warm Assessment and Plan (1) Chest pain Assessment & Plan: stable ACS ruled out cont with asa, bb, statins plan for outpt angiogram Status: Acute (2) CHF (congestive heart failure) Assessment & Plan: Diastolic clinially stable cont with arb and bb Status: Acute (3) Renal failure Assessment & Plan: Cr stable at 2.9 outpt f/u with chicken picker Status: Acute (4) Dyslipidemia Assessment & Plan: cont with fenofibrates and statins Status: Acute (5) HTN (hypertension) Status: Acute
== END 2017-04-13 18:30 | disposition home or self-care (01) | DRG 291 ==
LOC: C.ER 23:40 → C.6T 04-10 01:31
PROVIDERS: ADMIT Internal Medicine Nephrology; ATTEND Internal Medicine Nephrology
DX: I13.0 Hypertensive heart and chronic kidney disease with heart failure and stage 1 through stage 4 chronic kidney disease, or unspecified chronic kidney disease (principal); I50.23 Acute on chronic systolic (congestive) heart failure; E11.22 Type 2 diabetes mellitus with diabetic chronic kidney disease; I42.9 Cardiomyopathy, unspecified; N18.3 Chronic kidney disease, stage 3 (moderate); I25.2 Old myocardial infarction; I25.10 Atherosclerotic heart disease of native coronary artery without angina pectoris; E78.5 Hyperlipidemia, unspecified; Z87.891 Personal history of nicotine dependence; E11.65 Type 2 diabetes mellitus with hyperglycemia; Z79.4 Long term (current) use of insulin